=== PATIENT | male | born 2000 | race Hispanic/Latino ===

== ENCOUNTER 2019-05-02 01:14 | Emergency (ER) | payer OTHER ==
[2019-05-02] MEDS ORDERED: PANTOPRAZOLE SODIUM 40 MG TABLET.DR ONE (01:39)
[2019-05-02 01:55] LABS: APPEARANCE,URINE Clear (CLEAR); BILIRUBIN,URINE Negative (NEGATIVE); COLOR,URINE Dark Yellow (YELLOW); GLUCOSE, URINE (UA) Negative (NEGATIVE); KETONES,URINE Trace mg/dL (NEGATIVE); LEUKOCYTE ESTERASE ,URINE Small (NEGATIVE); NITRATE,URINE Negative (NEGATIVE); OCCULT BLOOD,URINE Negative (NEGATIVE); PROTEIN,URINE POS 1+ mg/dL (NEGATIVE)
[2019-05-02 02:15] LABS: BACTERIA,URINE None Seen /HPF (None Seen); MUCUS,URINE Few LPF (None Seen); RBC,URINE None Seen /HPF (0-1); SQUAMOUS EPITHELIAL CELL,UR Rare /HPF (0-2)
== END 2019-05-02 02:03 | disposition home or self-care (01) ==
LOC: EDH 01:14
DX: K29.00 Acute gastritis without bleeding (principal)
CPT/HCPCS: 81001